=== PATIENT | male | born 1960 | race Caucasian/White ===

== ENCOUNTER 2022-12-01 12:57 | Outpatient (CLI) | payer OTHER, SELFPAY ==
--- NOTE | 2022-12-01 14:30 | NEURO_ITS ---
Impression: # Complains of chronic bilateral upper extremity weakness. # No Carpal Tunnel Syndrome. # Bilateral ulnar neuropathy around the elbows, right more than left,of severe degree.. # Neurogenic changes noted on needle/EMG exam.in muscles of ulnar nerve distribution. Nerve Conduction Studies Anti Sensory Summary Table Stim Site NR Peak (ms) P-T Amp (?V) Site1 Site2 Delta-P (ms) Dist (cm) Mj (m/s) Left Median Anti Sensory (2-3nd Digit) Wrist 3.2 35.1 Wrist 2-3nd Digit 3.2 14.0 44 Wrist 3.0 21.5 Wrist 2-3nd Digit 3.2 14.0 44 Right Median Anti Sensory (2-3nd Digit) Wrist 2.9 23.5 Wrist 2-3nd Digit 2.9 14.0 48 Wrist 3.0 31.4 Wrist 2-3nd Digit 2.9 14.0 48 Left Radial Anti Sensory (Base 1st Digit) Wrist 2.0 40.7 Wrist Base 1st Digit 2.0 0.0 Right Radial Anti Sensory (Base 1st Digit) Wrist 2.3 9.4 Wrist Base 1st Digit 2.3 0.0 Left Ulnar Anti Sensory (5th Digit) Wrist 2.4 14.1 Wrist 5th Digit 2.4 14.0 58 Right Ulnar Anti Sensory (5th Digit) Wrist 3.4 50.9 Wrist 5th Digit 3.4 14.0 41 Motor Summary Table Stim Site NR Onset (ms) O-P Amp (mV) Site1 Site2 Delta-0 (ms) Dist (cm) Mj (m/s) Left Median Motor (Abd Poll Brev) Wrist 2.9 4.2 Elbow Wrist 4.6 28.0 61 Elbow 7.5 3.8 Right Median Motor (Abd Poll Brev) Wrist 3.1 5.4 Elbow Wrist 4.9 31.0 63 Elbow 8.0 4.4 Left Ulnar Motor (Abd Dig Minimi) Wrist 2.7 5.8 A Elbow Wrist 6.0 30.0 50 A Elbow 8.7 3.9 B Elbow Wrist 3.9 24.0 62 B Elbow 6.6 3.2 Right Ulnar Motor (Abd Dig Minimi) Wrist 2.8 1.8 A Elbow Wrist 9.2 31.0 34 A Elbow 12.0 1.1 B Elbow Wrist 6.7 20.0 30 B Elbow 9.5 0.2 F Wave Studies NR F-Lat (ms) L-R F-Lat (ms) Left Median (Mrkrs) (Abd Poll Brev) 26.10 0.34 Right Median (Mrkrs) (Abd Poll Brev) 25.76 0.34 Left Ulnar (Mrkrs) (Abd Dig Min) 28.36 3.02 Right Ulnar (Mrkrs) (Abd Dig Min) 25.34 3.02 EMG Side Muscle Nerve Root Ins Act Fibs Amp Dur Recrt Comment Right 1stDorInt Ulnar C8-T1 Nml Nml Nml >12ms Reduced Right Ext Indicis Radial (Post Int) C7-8 Nml Nml Nml Nml Nml Right Ext Digitorum Radial (Post Int) C7-8 Nml Nml Nml Nml Nml Right BrachioRad Radial C5-6 Nml Nml Nml Nml Nml Right PronatorTeres Median C6-7 Nml Nml Nml Nml Nml Right Abd Poll Brev Median C8-T1 Nml Nml Nml Nml Nml Left 1stDorInt Ulnar C8-T1 Nml Nml Nml >12ms Reduced Left Ext Indicis Radial (Post Int) C7-8 Nml Nml Nml Nml Nml Left Ext Digitorum Radial (Post Int) C7-8 Nml Nml Nml Nml Nml Left BrachioRad Radial C5-6 Nml Nml Nml Nml Nml Left PronatorTeres Median C6-7 Nml Nml Nml Nml Nml Left Abd Poll Brev Median C8-T1 Nml Nml Nml Nml Nml Right ABD Dig Min Ulnar C8-T1 Nml Nml Nml >12ms Reduced Right Biceps Musculocut C5-6 Nml Nml Nml Nml Nml Right Triceps Radial C6-7-8 Nml Nml Nml Nml Nml Right Deltoid Axillary C5-6 Nml Nml Nml Nml Nml Left ABD Dig Min Ulnar C8-T1 Nml Nml Nml >12ms Reduced Left Biceps Musculocut C5-6 Nml Nml Nml Nml Nml Left Triceps Radial C6-7-8 Nml Nml Nml Nml Nml Left Deltoid Axillary C5-6 Nml Nml Nml Nml Nml MTDD
== END 2022-12-01 12:58 | disposition home or self-care (01) ==
PROVIDERS: Visit Provider Orthopaedic Surgery
DX: G56.23 Lesion of ulnar nerve, bilateral upper limbs (principal)
CPT/HCPCS: 95886; 95911